=== PATIENT | female | born 1935 | race Caucasian/White ===

== ENCOUNTER 2019-03-04 16:31 | Inpatient (IN) | payer OTHER ==
[~2019-03-04] VITALS: Ht 157.5 cm; Wt 60.8 kg
[~2019-03-04 16:31] MED LIST: ASPI81EC98 PO; ATI.5 PO; ATOR40TA PO; AZEL137S8 NS; BUDE1AER2 IH; CAR30 PO; ISOS1POW; LEVO500T6 PO; LISI-420 PO; LISI10TA11 PO; METR250T2 PO; MOME0.051 NS; NITR0.4T2 SL; [UNRECOGNIZED DRUG - CODE] IH
--- NOTE | 2019-03-04 16:31 | NUR ---
Patient BIBA ALS, transferred to bed 6. RN evaluating patient at bedside.
[2019-03-04 16:37] VITALS: BP 140/55
[2019-03-04] MEDS ORDERED: BUDE1AER2 IH (16:49)
[2019-03-04] MEDS ORDERED: NITR0.4T2 SL (16:49)
[2019-03-04] MEDS ORDERED: MONT10TA35 PO (16:49)
--- NOTE | 2019-03-04 17:02 | NUR ---
Dr. Boswell evaluating patient at bedside.
--- NOTE | 2019-03-04 17:05 | NUR ---
PATIENT PRESENTS TO ED WITH BILATERAL LOWER QUADRANTS PAIN DENIES, SKIN IS PINK/WARM/DRY; AAOX4 WITH EVEN AND STEADY GAIT; LUNGS CLEAR BL; HR EVEN AND REGULAR; PT DENIES ANY FEVER, CP, SOB, OR COUGH AT THIS TIME; PATIENT STATES PAIN OF 6/10 AT THIS TIME; VSS; PATIENT POSITIONED FOR COMFORT; HOB ELEVATED; BEDRAILS UP X2; BED DOWN. ER MD MADE AWARE OF PT STATUS.
[2019-03-04] MEDS ORDERED: NACL 0.9% 1,000 ML IV ONE (17:13)
[2019-03-04] MEDS ORDERED: NACL 0.9% 1,000 ML IV SCH ×2 (17:13→19:26)
[2019-03-04] MEDS ORDERED: ONDANSETRON 4 MG/2 ML VIAL IVP ONE (17:15)
[2019-03-04] MEDS ORDERED: FAMOTIDINE 20 MG/2 ML VIAL IVP ONE (17:15)
[2019-03-04] MEDS ORDERED: KETOROLAC 15 MG/ML VIAL IVP ONE (17:15)
[2019-03-04] MEDS ORDERED: metroNIDAZOLE 500 MG/NS PREMIX 100 ML IV ONE (17:15)
[2019-03-04 18:02] LABS: BASOPHILS % (AUTO) 0.2 % (0.0-2.0); EOSINOPHILS # (AUTO) 0.2 K/uL (0-0.4); EOSINOPHILS % (AUTO) 1.8 % (0.0-4.0); HEMOGLOBIN 13.9 g/dL (12.0-16.0); LYMPHOCYTES # (AUTO) 0.3 K/uL (2.5-16.5); LYMPHOCYTES % (AUTO) 2.6 % (20.5-51.1); MEAN CORPUSCULAR HEMOGLOBIN 31 pg (27-31); MEAN CORPUSCULAR HGB CONC 33 g/dL (33-37); MEAN CORPUSCULAR VOLUME 93.2 fL (80-94); MONOCYTES # (AUTO) 0.3 K/uL (0.8-1.0); MONOCYTES % (AUTO) 3.3 % (1.7-9.3); NEUTROPHILS % (AUTO) 92.1 % (42.2-75.2); PLATELET COUNT (AUTO) 210 K/uL (140-450); RED BLOOD CELL COUNT(AUTO) 4.51 MIL/uL (4.20-5.40); RED CELL DISTRIBUTION WIDTH 13.8 % (11.6-13.7); WHITE BLOOD COUNT (AUTO) 9.8 K/uL (4.8-10.8)
[2019-03-04 18:17] LABS: CARBON DIOXIDE 24.6 mmol/L (21-32); CHLORIDE 108 mmol/L (98-107); CREATININE 0.7 mg/dL (0.6-1.3); GLUCOSE 102 mg/dL (74-106); POTASSIUM 3.6 mmol/L (3.5-5.1); SODIUM SERUM 145 mmol/L (136-145); UREA NITROGEN, BLOOD 19 mg/dL (7-18)
--- NOTE | 2019-03-04 18:18 | NUR ---
Patient returned from CT scan. RN re-evaluating patient at bedside.
[2019-03-04 18:23] LABS: ALBUMIN 3.2 g/dL (3.4-5.0); AMYLASE 60 U/L (25-115); ASPARTATE AMINOTRANSFERASE 25 U/L (15-37); LIPASE 108 U/L (73-393)
--- NOTE | 2019-03-04 18:30 | NUR ---
PT KWESI KNIGHT NUMBER [phone]
--- NOTE | 2019-03-04 18:39 | NUR ---
paint laboratory technician at bedside.
[2019-03-04 19:07] LABS: PROTHROMBIN TIME 10.6 secs (10.8-13.4)
--- NOTE | 2019-03-04 19:15 | NUR ---
SBAR REPORT GIVEN TO PARAM MEJIA AT BEDSIDE.
[2019-03-04] MEDS ORDERED: ACETAMINOPHEN 325 MG TAB PO PRN (19:30)
[2019-03-04] MEDS ORDERED: ONDANSETRON 4 MG/2 ML VIAL IM/IVP PRN (19:30)
--- NOTE | 2019-03-04 19:35 | NUR ---
RESIDENTS BED SIDE
[2019-03-04] MEDS ORDERED: KETOROLAC 15 MG/ML VIAL IVP SCH (20:10)
[2019-03-04 20:27] LABS: APPEARANCE,URINE CLEAR (CLEAR); BILIRUBIN,URINE NEGATIVE (NEGATIVE); BLOOD, URINE 1+ (NEGATIVE); COLOR,URINE YELLOW (YELLOW); LEUKOCYTE ESTERASE ,URINE NEGATIVE (NEGATIVE); NITRITE, URINE NEGATIVE (NEGATIVE); UGLUCOSE NEGATIVE (NEGATIVE)
[2019-03-04 20:30] VITALS: BP 124/75
--- NOTE | 2019-03-04 20:30 | NUR ---
RECIEVED PT FROM ER / DIONTE , AAOX4 , NID , AMBULATES TO BED , AMBULATE WITH THE USE OF CANE ACCORDING TO HER HE HAS FOOT DROP . C/O OF ABDL. PAIN 05/28 SHE RATED THE PAIN - JUST MEDICATED WITH TORADOL AT ER. NPO EXCEPT MEDS INSTRUCT TO PT . MRSA SPECIMEN COLLECTED AND SENT TO LAB . ADMISSION ASSESSMENT DONE , FALL RISK - PUT ON SAFETY / FALL PRECAUTION PROTOCOL - BED ALARM ON , INSTRUCT THE USE OF CALL LIGHT - CALL LIGHT WITHIN REACH. PLAN OF CARE DISCUSSED AND VERBALIZE UNDERSTANDING - FOR STOOL COLLECTION FOR C DIFF. WILL CONT TO MONITOR . WITH HX OF MRSA NARES. Addendum: 03/05/19 at 313 by Azalea Cabral RN IV SITE INTACT AND PATENT .YASIR Addendum: 03/05/19 at 316 by Azalea Cabral RN THE NURSE'S ENTRY ( HX OF STROKE ) ON ADMISSION HEALTH ASSESSMENT IS WRONG ENTRY. PT STATED IN THIER FAMILY THERE FAMILIAL MEDICAL HX OF STROKE BUT SHE HAS NO HX OF IT. TO SUM UP PT. HAD NO HX OF STROKE- NICOLR
--- NOTE | 2019-03-04 20:30 | NUR ---
PT ADMITTED TO [facility] RM 115. TRANSFERRED PT VIA [facility]. REPORT GIVEN TO GASPER MEJIA. PT CARE TRANSFERRED TO RECEIVING RN.
[2019-03-04 21:15] LABS: RBC,URINE 0-5 /HPF (0-5); WBC,URINE NONE SEEN /HPF (0-5)
--- NOTE | 2019-03-04 22:00 | NUR ---
MADE ROUNDS , NO DISTRES NOTED AT THIS TIME , NO N/V AT THIS TIME , DENIES PAIN AT THIS TIME, WILL CONT. TO MONITOR.
[2019-03-04 22:15] LABS: CHOL/HDL RATIO 2.4 (1-4.5); FREE T4 (FREE THYROXINE) 1.28 ng/dL (0.76-1.46); MAGNESIUM 1.6 mg/dL (1.8-2.4); PHOSPHORUS 2.3 mg/dL (2.5-4.9); THYROID STIMULATING HORMONE 2.12 uIU/mL (0.34-3.74)
[2019-03-04] MEDS: DILTIAZEM 30 MG TAB PO SCH (22:26)
[2019-03-04] MEDS: LISINOPRIL 10 MG TAB PO SCH (22:26)
[2019-03-04] MEDS: LORazepam 0.5 MG TAB PO SCH (22:27)
[2019-03-04] MEDS ORDERED: MAG SULF 2000 MG/WATER PREMIX 50 ML IV SCH (23:15)
[2019-03-05] VITALS: BP 110/60
--- NOTE | 2019-03-05 | NUR ---
MADE ROUNDS , NO ANY SIGNS OF DISTRESS NOTED AT THIS TIME., STILL FOR STOOL COLLECTION .CALL LIGHT WITHIN REACH.
[2019-03-05 04:00] VITALS: BP 110/60
[2019-03-05] MEDS ORDERED: KETOROLAC 15 MG/ML VIAL IVP PRN (07:00)
--- NOTE | 2019-03-05 07:32 | NUR ---
RECEIVED ENDORSEMENT FROM CHARGE NURSE. PATIENT IS AAOX4, VIETNAMESE SPEAKING. RESPIRATIONS ARE EVEN AND UNLABORED ON ROOM AIR. PATIENT DENIES ANY PAIN AT THIS TIME. LEFT AC 20G IV INTACT, PATENT, AND INFUSING IVF. PLAN OF CARE WAS REVIEWED WITH PATIENT, PATIENT VERBALIZED UNDERSTANDING. SAFETY MEASURES IN PLACE, CALL LIGHT WITHIN REACH.
[2019-03-05 07:35] LABS: BASOPHILS % (AUTO) 0.3 % (0.0-2.0); EOSINOPHILS # (AUTO) 0.1 K/uL (0-0.4); EOSINOPHILS % (AUTO) 2.9 % (0.0-4.0); HEMATOCRIT 37.7 % (36-48); HEMOGLOBIN 12.7 g/dL (12.0-16.0); LYMPHOCYTES # (AUTO) 0.5 K/uL (2.5-16.5); LYMPHOCYTES % (AUTO) 9.1 % (20.5-51.1); MEAN CORPUSCULAR HEMOGLOBIN 31 pg (27-31); MEAN CORPUSCULAR HGB CONC 34 g/dL (33-37); MEAN CORPUSCULAR VOLUME 92.6 fL (80-94); MONOCYTES # (AUTO) 0.3 K/uL (0.8-1.0); MONOCYTES % (AUTO) 6.7 % (1.7-9.3); NEUTROPHILS # (AUTO) 4.1 K/uL (1.8-7.7); PLATELET COUNT (AUTO) 187 K/uL (140-450); RED BLOOD CELL COUNT(AUTO) 4.07 MIL/uL (4.20-5.40); RED CELL DISTRIBUTION WIDTH 13.9 % (11.6-13.7); WHITE BLOOD COUNT (AUTO) 5.1 K/uL (4.8-10.8)
[2019-03-05 08:00] VITALS: BP 136/60
[2019-03-05 08:04] LABS: ANION GAP 13.4 (8-16); CARBON DIOXIDE 23.3 mmol/L (21-32); CHLORIDE 112 mmol/L (98-107); CREATININE 0.7 mg/dL (0.6-1.3); GLUCOSE 84 mg/dL (74-106); POTASSIUM 3.7 mmol/L (3.5-5.1); SODIUM SERUM 145 mmol/L (136-145); UREA NITROGEN, BLOOD 17 mg/dL (7-18)
[2019-03-05] MEDS ORDERED: DEXT 5% /NACL 0.9% 1,000 ML IV SCH (08:20)
--- NOTE | 2019-03-05 08:20 | NUR ---
ADMINISTERED SCHEDULED FLUIDS. PATIENT DENIES ANY PAIN, NO OTHER NEEDS AT THIS TIME.
--- NOTE | 2019-03-05 08:33 | NUR ---
PATIENT HAS BEEN SCREENED AND CATEGORIZED MODERATE NUTRITION RISK. PATIENT WILL BE SEEN WITHIN 3-5 DAYS OF ADMISSION. 03/07/19 03/09/[address] Addendum: 03/05/19 at [address] DISREGARD NOTE ABOVE. FNS CONSULT HAS BEEN RECEIVED FOR MALNUTRITION AND CARDIAC DIET EDUCATION. PATIENT HAS BEEN RE-SCREENED HIGH RISK AND WILL BE SEEN WITHIN 1-2 DAYS OF RECEIVING THE FNS CONSULT. 03/05/19- 03/06/[address]
[2019-03-05] MEDS ORDERED: SODIUM PHOS / POTASSIUM PHOS 1 PKT PDR PO SCH (09:00)
[2019-03-05] MEDS: LISINOPRIL 20 MG TAB PO SCH (09:41)
[2019-03-05] MEDS: MONTELUKAST SODIUM 10 MG TAB PO SCH (09:42)
[2019-03-05] MEDS: ATORVASTATIN 20 MG TAB PO SCH (09:42)
[2019-03-05] MEDS: DILTIAZEM 30 MG TAB PO SCH ×2 (09:43→21:00)
[2019-03-05] MEDS: ASPIRIN 81 MG TAB.CHEW PO SCH (09:43)
--- NOTE | 2019-03-05 09:43 | NUR ---
ADMINISTERED SCHEDULED MEDICATIONS. PATIENT TOLERATED WELL. NO OTHER NEEDS AT THIS TIME. WILL CONTINUE TO MONITOR.
--- NOTE | 2019-03-05 11:59 | NUR ---
REMOVED IV, PATIENT C/O OF PAIN AND LEAKAGE. INSERTED NEW ONE USING ASEPTIC TECHNIQUE, LEFT FA22G. PATIENT DENIES ANY PAIN. NO OTHER NEEDS AT THIS TIME.
[2019-03-05 12:00] VITALS: BP 116/50
--- NOTE | 2019-03-05 13:12 | NUR ---
*S.T. Bedside swallow eval* See report. Pt presents w/ adequate oropharyngeal swallow function for the current diet she is on, which is clear liquids. No overt s/s aspiration observed w/ P.O. trial water via cup sip. Pt refused all other P.O. trials due to feeling bloated, as she did yesterday, which led to vomiting, diarrhea and her admission into hospital. Pt was tearful and expressed her concerns to this clinician and RN Radha, who was came to room at clinician's request. Pt's bedside RN Ayaka was with another patient at the time. Oropharyngeal dysphagia is not suspected. Pt denied any history of s/s aspiration. Recommend: 1) Continue P.O. diet as tolerated. Defer to medicine team on diet textures and dietary restrictions. 2) DC to nsg care at this time. Pt does not demonstrate a clinical dysphagia and therefore no further tx indicated. Endorsed to nsg. Time 6012-8902
--- NOTE | 2019-03-05 13:20 | NUR ---
ADDRESSED PATIENTS CONCERNS. INSTRUCTED PATIENT TO USE CALL LIGHT IF SHE FELT NAUSEOUS. NO OTHER NEEDS AT THIS TIME, WILL CONTINUE TO MONITOR.
--- NOTE | 2019-03-05 13:56 | NUR ---
03/05/19 RD INITIAL ASSESSMENT COMPLETED PLEASE REFER TO NUTRITION ASSESSMENT UNDER CARE ACTIVITY FOR ESTIMATED NUTRITIONAL NEEDS. 1. CONTINUE CLEAR LIQUID DIET TOLERATED 2. RECOMMEND ENSURE CLEAR TID TOLERATED 3. RD PROVIDED NUTRITION EDUCATION ON DIVERTICULITIS. PT ACCEPTED 4. WHEN MEDICALLY APPROPRIATE ADVANCE PT TO LOW FIBER DIET 5. RD TO FOLLOW-UP 2-3 DAYS, HIGH RISK AKIL BURTON, RD
--- NOTE | 2019-03-05 15:43 | NUR ---
PATIENT RESTING IN BED. DENIES ANY PAIN. NO OTHER NEEDS AT THIS TIME, WILL CONTINUE TO MONITOR.
[2019-03-05 16:00] VITALS: BP 120/59
[2019-03-05] MEDS ORDERED: DIPHENOXYLATE /ATROPINE 2.5 MG TAB PO PRN (16:55)
[2019-03-05] MEDS ORDERED: POTASSIUM CHLORIDE 20% 40 MEQ/15 ML UDC PO SCH (17:30)
--- NOTE | 2019-03-05 17:52 | NUR ---
ADMINISTERED SCHEDULED MEDICATION. PATIENT TOLERATED WELL. PATIENT DENIES ANY PAIN. NO OTHER NEEDS AT THIS TIME.
[2019-03-05] MEDS: NACL 0.9% 1,000 ML IV SCH (18:38)
--- NOTE | 2019-03-05 19:12 | NUR ---
RECIEVED PT AAOX4 , NID , IV SITE INTACT AND PATENT , WITH EPISODE OF LOOSE BM - WILL CONT. TO MONITOR , ON FULL LIQ. DIET - REINSTRUCTED , ON SAFETY / PRECAUTION PROTOCOL - BED ALARM ON , CALL LIGHT WITHIN REACH , PALAN OF CARE DISCUSSED AND VERBALIZE UNDERSTANDING , WILL CONT. TO MONITOR.
--- NOTE | 2019-03-05 19:12 | NUR ---
ENDORSED TO HOT ROLLER NURSE FOR CONTINUITY OF CARE. PATIENT IS STABLE AT THIS TIME.
[2019-03-05 20:00] VITALS: BP 140/72
[2019-03-05] MEDS: LISINOPRIL 10 MG TAB PO SCH (21:00)
[2019-03-05] MEDS: LORazepam 0.5 MG TAB PO SCH (21:00)
--- NOTE | 2019-03-05 21:10 | NUR ---
POSITIVE C DIFF - INFORMED YNES -MADE NEW ORDER AND CARRIED OUT .
[2019-03-05] MEDS ORDERED: WATER STERILE 20 ML MC ONE (23:52)
[2019-03-05] MEDS: VANCOMYCIN 500 MG VIAL PO SCH (23:58)
[2019-03-06] VITALS: BP 130/70
--- NOTE | 2019-03-06 | NUR ---
CARLOTTA CUMMINGS , NO SIGNS OF DISTRESS NOTED AT THIS TIME - CALL LIGHT WITHIN REACH.
[2019-03-06 04:00] VITALS: BP 133/72
[2019-03-06] MEDS: VANCOMYCIN 500 MG VIAL PO SCH ×4 (06:00→23:47)
[2019-03-06] MEDS: NACL 0.9% 1,000 ML IV SCH (07:13)
--- NOTE | 2019-03-06 07:20 | NUR ---
Received bedside report from pm nurse Azaela. Pt resting in bed, awake, watching TV, no signs of distress, no c/o discomfort. Left forearm IV intact with ongoing NS@ 80ml/h. Pt's personal cane & call light within reach. Encouraged pt to call for assistance with transfers/ambulation for safety, verbalized understanding.
--- NOTE | 2019-03-06 07:30 | NUR ---
ENDORSED TO AM SHIFT WITH STABLE CONDITION.
[2019-03-06 07:40] LABS: BASOPHILS % (AUTO) 0.5 % (0.0-2.0); EOSINOPHILS # (AUTO) 0.3 K/uL (0-0.4); EOSINOPHILS % (AUTO) 7.4 % (0.0-4.0); HEMATOCRIT 39.1 % (36-48); HEMOGLOBIN 12.9 g/dL (12.0-16.0); LYMPHOCYTES # (AUTO) 1.3 K/uL (2.5-16.5); LYMPHOCYTES % (AUTO) 29.3 % (20.5-51.1); MEAN CORPUSCULAR HEMOGLOBIN 31 pg (27-31); MEAN CORPUSCULAR HGB CONC 33 g/dL (33-37); MEAN CORPUSCULAR VOLUME 94.1 fL (80-94); MONOCYTES # (AUTO) 0.4 K/uL (0.8-1.0); MONOCYTES % (AUTO) 9.8 % (1.7-9.3); NEUTROPHILS # (AUTO) 2.3 K/uL (1.8-7.7); PLATELET COUNT (AUTO) 174 K/uL (140-450); RED BLOOD CELL COUNT(AUTO) 4.16 MIL/uL (4.20-5.40); RED CELL DISTRIBUTION WIDTH 14.2 % (11.6-13.7); WHITE BLOOD COUNT (AUTO) 4.4 K/uL (4.8-10.8)
[2019-03-06 07:58] VITALS: BP 150/69
[2019-03-06 08:16] LABS: POTASSIUM 3.9 mmol/L (3.5-5.1); SODIUM SERUM 141 mmol/L (136-145)
[2019-03-06 08:17] LABS: ANION GAP 12.6 (8-16); CARBON DIOXIDE 22.3 mmol/L (21-32); CHLORIDE 110 mmol/L (98-107); CREATININE 0.8 mg/dL (0.6-1.3); GLUCOSE 79 mg/dL (74-106); UREA NITROGEN, BLOOD 9 mg/dL (7-18)
[2019-03-06] MEDS ORDERED: CHLORHEXADINE GLUC 2% CLOTH TP SCH (09:00)
[2019-03-06] MEDS ORDERED: MUPIROCIN CA NASAL 2% 1GM TUBE NS SCH (09:00)
[2019-03-06] MEDS: ASPIRIN 81 MG TAB.CHEW PO SCH (09:04)
[2019-03-06] MEDS: MONTELUKAST SODIUM 10 MG TAB PO SCH (09:04)
[2019-03-06] MEDS: DILTIAZEM 30 MG TAB PO SCH ×2 (09:04→21:05)
[2019-03-06] MEDS: LISINOPRIL 20 MG TAB PO SCH (09:04)
[2019-03-06] MEDS: ATORVASTATIN 20 MG TAB PO SCH (09:05)
[2019-03-06 10:24] LABS: MAGNESIUM 1.8 mg/dL (1.8-2.4); PHOSPHORUS 2.5 mg/dL (2.5-4.9)
--- NOTE | 2019-03-06 10:30 | NUR ---
Pt resting in bed, watching TV, no signs of distress, no c/o pain. Per pt, no BM since last night, no GI discomfort. Left forearm IV intact with ongoing NS @ 80ml/hr. Call light within reach.
[2019-03-06 12:00] VITALS: BP 138/70
[2019-03-06 16:00] VITALS: BP 124/63
--- NOTE | 2019-03-06 18:29 | NUR ---
Pt sitting up in bed, eating dinner, no c/o discomfort, no signs of distress. Pt denies any GI discomfort. Left forearm IV intact & asymptomatic. Call light within reach.
--- NOTE | 2019-03-06 19:00 | NUR ---
RECEIVED BEDSIDE REPORT FROM DAY SHIFT NURSE. PATIENT IS AWAKE, ALERT, AND COOPERATIVE. RESPIRATION EVEN UNLABORED ON ROOM AIR. NO DISTRESS NOTED. SKIN IS WARM AND DRY. IV PATENT AND INTACT. DENIES PAIN. FAMILY AT BEDSIDE. PLAN OF CARE WAS DISCUSSED. ALL SAFETY MEASURES IN PLACE. CONTACT PRECAUTION MAINTAINED. BED IS AT LOW POSITION. CALL LIGHT WITHIN REACH AND VERBALIZES ITS USE. WILL CONTINUE TO MONITOR.
--- NOTE | 2019-03-06 19:30 | NUR ---
PT ENDORSED TO PC TECHNICIAN NURSE IN STABLE CONDITION.
[2019-03-06 20:00] VITALS: BP 143/66
--- NOTE | 2019-03-06 20:00 | NUR ---
INITIAL ASSESSMENT DONE. VITALS WERE TAKEN. PATIENT IN STABLE CONDITION. WILL CONTINUE TO MONITOR.
--- NOTE | 2019-03-06 21:00 | NUR ---
ALL SCHEDULED MEDS WERE GIVEN PER ORDER. NO ASE NOTED. WILL CONTINUE TO MONITOR.
[2019-03-06] MEDS: LISINOPRIL 10 MG TAB PO SCH (21:05)
[2019-03-06] MEDS: LORazepam 0.5 MG TAB PO SCH (21:05)
--- NOTE | 2019-03-06 22:30 | NUR ---
PATIENT IN BED WATCHING TV RESPIRATION EVEN UNLABORED ON ROOM AIR. NO DISTRESS NOTED. WILL CONTINUE TO MONITOR.
[2019-03-07] VITALS: BP 145/70
--- NOTE | 2019-03-07 | NUR ---
VITALS WERE TAKEN. PATIENT IN STABLE CONDITION. NO DISTRESS NOTED. WILL CONTINUE TO MONITOR.
--- NOTE | 2019-03-07 02:00 | NUR ---
CHECKED PATIENT. PATIENT SLEEPING RESPIRATION EVEN UNLABOR ON ROOM AIR. NO DISTRESS NOTED. WILL CONTINUE TO MONITOR.
[2019-03-07 04:00] VITALS: BP 142/75
--- NOTE | 2019-03-07 04:00 | NUR ---
VITALS WERE TAKEN. PATIENT IN STABLE CONDITION. NO DISTRESS NOTED. WILL CONTINUE TO MONITOR.
[2019-03-07] MEDS: VANCOMYCIN 500 MG VIAL PO SCH (06:01)
--- NOTE | 2019-03-07 07:28 | NUR ---
ENDORSED PATIENT TO DAY SHIFT NURSE. PATIENT IN STABLE CONDITION
--- NOTE | 2019-03-07 07:30 | NUR ---
Received report from shift superintendent nurse. No C/O pain. No signs of distress. Call light in reach.
[2019-03-07 07:44] LABS: BASOPHILS % (AUTO) 0.5 % (0.0-2.0); EOSINOPHILS # (AUTO) 0.4 K/uL (0-0.4); EOSINOPHILS % (AUTO) 8.5 % (0.0-4.0); HEMATOCRIT 39.1 % (36-48); LYMPHOCYTES # (AUTO) 1.4 K/uL (2.5-16.5); LYMPHOCYTES % (AUTO) 30.3 % (20.5-51.1); MEAN CORPUSCULAR HEMOGLOBIN 31 pg (27-31); MEAN CORPUSCULAR HGB CONC 33 g/dL (33-37); MEAN CORPUSCULAR VOLUME 92.6 fL (80-94); MONOCYTES # (AUTO) 0.5 K/uL (0.8-1.0); MONOCYTES % (AUTO) 10.3 % (1.7-9.3); NEUTROPHILS # (AUTO) 2.3 K/uL (1.8-7.7); NEUTROPHILS % (AUTO) 50.4 % (42.2-75.2); PLATELET COUNT (AUTO) 166 K/uL (140-450); RED BLOOD CELL COUNT(AUTO) 4.22 MIL/uL (4.20-5.40); RED CELL DISTRIBUTION WIDTH 13.8 % (11.6-13.7); WHITE BLOOD COUNT (AUTO) 4.5 K/uL (4.8-10.8)
[2019-03-07 07:47] LABS: MAGNESIUM 1.7 mg/dL (1.8-2.4)
[2019-03-07 07:48] LABS: ANION GAP 13.1 (8-16); CARBON DIOXIDE 24.7 mmol/L (21-32); CHLORIDE 110 mmol/L (98-107); CREATININE 0.7 mg/dL (0.6-1.3); GLUCOSE 81 mg/dL (74-106); POTASSIUM 3.8 mmol/L (3.5-5.1); SODIUM SERUM 144 mmol/L (136-145); UREA NITROGEN, BLOOD 8 mg/dL (7-18)
[2019-03-07 07:59] LABS: PHOSPHORUS 3.2 mg/dL (2.5-4.9)
[2019-03-07 08:00] VITALS: BP 150/66
[2019-03-07] MEDS ORDERED: VANC125C10 PO (08:01)
[2019-03-07] MEDS ORDERED: LACT1.4C PO (08:01)
[2019-03-07] MEDS ORDERED: MAGNESIUM OXIDE 400 MG TAB PO SCH (08:30)
[2019-03-07] MEDS: ASPIRIN 81 MG TAB.CHEW PO SCH (08:33)
[2019-03-07] MEDS: LISINOPRIL 20 MG TAB PO SCH (08:33)
[2019-03-07] MEDS: ATORVASTATIN 20 MG TAB PO SCH (08:33)
[2019-03-07] MEDS: MONTELUKAST SODIUM 10 MG TAB PO SCH (08:34)
[2019-03-07] MEDS: DILTIAZEM 30 MG TAB PO SCH (08:35)
--- NOTE | 2019-03-07 10:30 | NUR ---
Pt resting in bed> no C/O pain. Call light in reach
--- NOTE | 2019-03-07 11:55 | NUR ---
Pt discharge to home. Pt was taken by wheel chair to her car. Pt was accompanied by son and grandson. Pt was stable at discharge. no C/O pain. No distress noted. Discharge instruction given to patient. All belongings with patient. Pt to follow up PCP within 5 days. IV line removed. Catheter intact.
[2019-03-08] MEDS ORDERED: PHARMACY COMMENTS MC SCH (09:00)
== END 2019-03-07 11:55 | disposition home or self-care (01) | DRG 371 ==
LOC: MED 16:31 → MTU 19:26
PROVIDERS: ADMIT General Practice; ATTEND General Practice
DX: A04.72 Enterocolitis due to Clostridium difficile, not specified as recurrent (principal); E43 Unspecified severe protein-calorie malnutrition; A08.4 Viral intestinal infection, unspecified; E83.42 Hypomagnesemia; Z68.24 Body mass index [BMI] 24.0-24.9, adult; E83.39 Other disorders of phosphorus metabolism; I10 Essential (primary) hypertension; I25.10 Atherosclerotic heart disease of native coronary artery without angina pectoris; I48.91 Unspecified atrial fibrillation; J45.909 Unspecified asthma, uncomplicated; E86.0 Dehydration; E78.5 Hyperlipidemia, unspecified; R31.9 Hematuria, unspecified; K57.90 Diverticulosis of intestine, part unspecified, without perforation or abscess without bleeding; Z88.5 Allergy status to narcotic agent; Z79.82 Long term (current) use of aspirin; Z79.899 Other long term (current) drug therapy; Z82.61 Family history of arthritis; Z83.3 Family history of diabetes mellitus; Z82.3 Family history of stroke; Z82.49 Family history of ischemic heart disease and other diseases of the circulatory system
CPT/HCPCS: 36415; 71045; 80048; 80053; 81001; 82150; 82272; 82550; 83036; 83605; 83690; 83735; 83880; 84100; 84439; 84443; 84484; 85025; 85610; 85730; 87015; 87045; 87070; 87081; 89055; 92610; 93005; 96365; 96375; 97116; 97530; 99285; J1644; J1885; J2405; J3370; J3475; J3490; J7030; J7042

== ENCOUNTER 2021-07-14 13:47 | Emergency (ER) | payer OTHER ==
[~2021-07-14] VITALS: Ht 162.6 cm; Wt 77.1 kg
[~2021-07-14 13:47] MED LIST changes: -ATI.5 PO; -BUDE1AER2 IH; -CAR30 PO; +DILT30TA18 PO; -ISOS1POW; +LACT1.4C PO; -LEVO500T6 PO; -LISI-420 PO; +LISI-486 PO; +LISI-487 PO; -LISI10TA11 PO; -METR250T2 PO; -MOME0.051 NS; +MONT10TA35 PO; -NITR0.4T2 SL; +VANC125C10 PO; -[UNRECOGNIZED DRUG - CODE] IH
--- NOTE | 2021-07-14 14:00 | NUR ---
PATIENT AMBULATED TO BED 11
[2021-07-14 14:01] VITALS: BP 160/74
--- NOTE | 2021-07-14 14:16 | NUR ---
85/F C/O OF RIGHT FOOT CALLUS, 7/10 PAIN. PATIENT STATES THAT IT HURTS TO WALK ON FOOT AND IT FEELS LIKE ITS INFECTED. PMHX: HYPERTENSION, A-FIB, CHOLESTEROL, ADULT ASTHMA
--- NOTE | 2021-07-14 14:45 | NUR ---
Ultrasound at bedside.
--- NOTE | 2021-07-14 15:00 | NUR ---
PATIENT STABLE IN BED, ALL NEEDS MET
[2021-07-14] MEDS ORDERED: CEPH-588 PO (15:40)
--- NOTE | 2021-07-14 15:45 | NUR ---
Patient discharged with v/s stable. Written and verbal after care instructions given on corn and calluses and explained. Patient alert, oriented and verbalized understanding of instructions. Ambulatory with steady gait. All questions addressed prior to discharge. ID band removed. Patient advised to follow up with PMD. Rx of keflex given. Opportunity to ask questions provided and answered.
[2021-07-14 15:54] VITALS: BP 128/78
--- NOTE | 2021-07-14 16:01 | NUR ---
The patient's care was reviewed and supervised by Nelida Galaviz RN.
== END 2021-07-14 15:45 | disposition home or self-care (01) ==
LOC: MED 13:47
DX: M25.775 Osteophyte, left foot (principal); J45.909 Unspecified asthma, uncomplicated; I10 Essential (primary) hypertension; Z88.5 Allergy status to narcotic agent; Z79.899 Other long term (current) drug therapy; Z79.82 Long term (current) use of aspirin
CPT/HCPCS: 93971; 99284; Q0092

== ENCOUNTER 2021-07-28 17:02 | Emergency (ER) | payer OTHER ==
[~2021-07-28] VITALS: Ht 160 cm; Wt 74.8 kg
[~2021-07-28 17:02] MED LIST changes: +CEPH-588 PO
[2021-07-28 17:11] VITALS: BP 152/72
--- NOTE | 2021-07-28 17:19 | NUR ---
BIBA to bed 04.
[2021-07-28] MEDS ORDERED: IBUPROFEN 400 MG TAB PO ONE (17:20)
[2021-07-28] MEDS ORDERED: LIDOCAINE 5% 1 EA PATCH TP ONE (17:20)
--- NOTE | 2021-07-28 17:25 | NUR ---
85 y/o F BIBA from home c/o L upper back pain since yesterday, reports today worsening pain to L shoulder and L side of neck. Patient A&Ox4, ambulatory with cane, states pain yesterday was alleviated with repositioning and reports pain radiating pain. Pt noted with infection to L foot per EMS. Patient reports 8/10, dull/constant, radiating to shoulder, L neck, and chest. EMS 12 lead A-fib @ HR 88. Pt denies nausea, vomiting, SOB, fall, trauma, dizziness, headache. Pt placed into gown and quality assurance monitor. Bed locked in lowest position, side rails x 1. 20G established to Left FA by EMS. PMH: a-fib, HTN, HLD, asthma Meds: simacor, keflex, ASA, montelukast, lisinopril A: morphine
[2021-07-28] MEDS ORDERED: LIDO5TDM45 TP (18:25)
[2021-07-28 18:50] VITALS: BP 152/72
--- NOTE | 2021-07-28 18:50 | NUR ---
Patient discharged with v/s stable. Written and verbal after care instructions given and explained. Patient alert, oriented and verbalized understanding of instructions. Ambulatory with steady gait. All questions addressed prior to discharge. ID band removed. IV DISCONTINUED. Patient advised to follow up with PMD. Rx of LIDOCAINE given. Patient educated on indication of medication including possible reaction and side effects. Opportunity to ask questions provided and answered.
== END 2021-07-28 18:50 | disposition home or self-care (01) ==
LOC: MED 17:02
DX: M25.512 Pain in left shoulder (principal); I10 Essential (primary) hypertension; J45.909 Unspecified asthma, uncomplicated; Z88.5 Allergy status to narcotic agent; Z79.899 Other long term (current) drug therapy; Z79.82 Long term (current) use of aspirin; Z85.9 Personal history of malignant neoplasm, unspecified
CPT/HCPCS: 71045; 73030; 99284; Q0092

== ENCOUNTER 2021-11-11 10:39 | Emergency (ER) | payer OTHER ==
[~2021-11-11] VITALS: Ht 157.5 cm; Wt 75.9 kg
[~2021-11-11 10:39] MED LIST changes: +LIDO5TDM45 TP
[2021-11-11 10:48] VITALS: BP 126/89
--- NOTE | 2021-11-11 10:58 | NUR ---
PT W/C ASSISTED TO BED 12.
[2021-11-11] MEDS ORDERED: NACL 0.9% 1,000 ML IV ONE (11:10)
--- NOTE | 2021-11-11 11:15 | NUR ---
86 y/o female, c/o throat pain, cough, chest/nasal congestion, saucedo for 1 month. pt reports new onset of diarrhea this morning. pt also states she tested negative for covid this morning with at home test. skin is pink/warm/dry. a&o x4 with even and steady gait. lungs clear bl, heart rate even and regular. pt denies anyone sick in the household with the same symptoms. pt states pain is 8/10 at this time. patient positioned for comfort. hob elevated. bed down. ermd made aware of pt. pmh: atrial fibrillation, htn, asthma allergy: morphine med: denies
--- NOTE | 2021-11-11 11:18 | NUR ---
influenza and covid stephan done at this time, given to lab
--- NOTE | 2021-11-11 11:37 | NUR ---
X-Ray at bedside.
[2021-11-11 12:02] LABS: BASOPHILS % (AUTO) 0.3 % (0.0-2.0); EOSINOPHILS # (AUTO) 1.9 K/uL (0-0.4); EOSINOPHILS % (AUTO) 22.4 % (0.0-4.0); HEMATOCRIT 40.2 % (36-48); HEMOGLOBIN 13.7 g/dL (12.0-16.0); LYMPHOCYTES # (AUTO) 1.3 K/uL (2.5-16.5); LYMPHOCYTES % (AUTO) 14.9 % (20.5-51.1); MEAN CORPUSCULAR HEMOGLOBIN 32 pg (27-31); MEAN CORPUSCULAR HGB CONC 34 g/dL (33-37); MEAN CORPUSCULAR VOLUME 92.9 fL (80-94); MONOCYTES # (AUTO) 0.8 K/uL (0.8-1.0); MONOCYTES % (AUTO) 9.3 % (1.7-9.3); NEUTROPHILS # (AUTO) 4.5 K/uL (1.8-7.7); NEUTROPHILS % (AUTO) 53.1 % (42.2-75.2); PLATELET COUNT (AUTO) 203 K/uL (140-450); RED BLOOD CELL COUNT(AUTO) 4.33 MIL/uL (4.20-5.40); RED CELL DISTRIBUTION WIDTH 14.6 % (11.6-13.7); WHITE BLOOD COUNT (AUTO) 8.5 K/uL (4.8-10.8)
[2021-11-11 12:20] LABS: ANION GAP 14.7 (8-16); CARBON DIOXIDE 24.3 mmol/L (21-32); CHLORIDE 109 mmol/L (98-107); CREATININE 0.9 mg/dL (0.6-1.3); GLUCOSE 109 mg/dL (74-106); SODIUM SERUM 144 mmol/L (136-145); UREA NITROGEN, BLOOD 12 mg/dL (7-18)
[2021-11-11] MEDS ORDERED: DILT30TA18 PO (14:48)
[2021-11-11 15:05] VITALS: BP 113/57
--- NOTE | 2021-11-11 15:07 | NUR ---
Patient discharged with v/s stable. Written and verbal after care instructions given and explained. Patient alert, oriented and verbalized understanding of instructions. Ambulatory to car. All questions addressed prior to discharge. ID band removed. Patient advised to follow up with PMD. Rx of ditiazem (sent) given. Patient educated on indication of medication including possible reaction and side effects. Opportunity to ask questions provided and answered.
== END 2021-11-11 15:05 | disposition home or self-care (01) ==
LOC: MED 10:39
DX: J01.90 Acute sinusitis, unspecified (principal); Z20.822 Contact with and (suspected) exposure to COVID-19; I48.20 Chronic atrial fibrillation, unspecified; R19.7 Diarrhea, unspecified; J45.909 Unspecified asthma, uncomplicated; I10 Essential (primary) hypertension; Z98.890 Other specified postprocedural states; Z79.2 Long term (current) use of antibiotics; Z79.899 Other long term (current) drug therapy; Z79.82 Long term (current) use of aspirin; Z88.5 Allergy status to narcotic agent
CPT/HCPCS: 36415; 71045; 80048; 81002; 83735; 83880; 84484; 85025; 87426; 87804; 93005; 96360; 96361; 99285; J7030; Q0092

== ENCOUNTER 2022-06-10 17:44 | Inpatient (IN) | payer OTHER ==
[~2022-06-10] VITALS: Ht 157.5 cm; Wt 45.4 kg
[~2022-06-10 17:44] MED LIST changes: +BUDE1AER2 IH; -CEPH-588 PO; +FEXO-8 PO; +ISOS10TA9 PO; -LACT1.4C PO; -LIDO5TDM45 TP; -LISI-486 PO; -VANC125C10 PO
[2022-06-10 17:49] VITALS: BP 143/107
--- NOTE | 2022-06-10 17:59 | NUR ---
WC ASSISTED TO BED 4
[2022-06-10] MEDS ORDERED: ENOXAPARIN 40 MG/0.4 ML SYR SUBQ ONE (18:35)
[2022-06-10 18:53] LABS: BASOPHILS # (AUTO) 0.1 K/uL (0.00-0.22); BASOPHILS % (AUTO) 0.6 % (0.0-2.0); EOSINOPHILS # (AUTO) 0.1 K/uL (0-0.4); EOSINOPHILS % (AUTO) 1.3 % (0.0-4.0); MEAN CORPUSCULAR HEMOGLOBIN 31 pg (27-31); MEAN CORPUSCULAR HGB CONC 33 g/dL (33-37); MEAN CORPUSCULAR VOLUME 91.5 fL (80-94); MONOCYTES # (AUTO) 0.8 K/uL (0.8-1.0); MONOCYTES % (AUTO) 9.9 % (1.7-9.3); NEUTROPHILS # (AUTO) 5.5 K/uL (1.8-7.7); NEUTROPHILS % (AUTO) 64.2 % (42.2-75.2); PLATELET COUNT (AUTO) 194 K/uL (140-450); RED BLOOD CELL COUNT(AUTO) 4.59 MIL/uL (4.20-5.40); RED CELL DISTRIBUTION WIDTH 15.2 % (11.6-13.7); WHITE BLOOD COUNT (AUTO) 8.5 K/uL (4.8-10.8)
--- NOTE | 2022-06-10 19:18 | NUR ---
PT IS AWAKE AND ALERT. RESTING AND ABLE TO ANSWER QUESTIONS. SHE SAID SHE IS USING CANE AND CANT WALK VERY FAR SINCE T CAUSES HER OUT OF BREATH
[2022-06-10 19:26] LABS: ALBUMIN 3.3 g/dL (3.4-5.0); ANION GAP 13.2 (8-16); ASPARTATE AMINOTRANSFERASE 14 U/L (15-37); CARBON DIOXIDE 23.1 mmol/L (21-32); CHLORIDE 108 mmol/L (98-107); CREATININE 1.1 mg/dL (0.6-1.3); GLUCOSE 102 mg/dL (74-106); POTASSIUM 4.3 mmol/L (3.5-5.1); SODIUM SERUM 140 mmol/L (136-145); TOTAL BILIRUBIN 0.9 mg/dL (0.0-1.0); UREA NITROGEN, BLOOD 30 mg/dL (7-18)
[2022-06-10] MEDS ORDERED: ONDANSETRON 4 MG/2 ML VIAL IVP PRN (20:00)
[2022-06-10] MEDS ORDERED: DOCUSATE SODIUM 100 MG GELCAP PO PRN (20:00)
[2022-06-10] MEDS ORDERED: MAG SULF 2000 MG/WATER PREMIX 50 ML IV PRN (20:00)
[2022-06-10] MEDS ORDERED: LORazepam 2 MG/ML VIAL IVP PRN (20:00)
[2022-06-10] MEDS ORDERED: ZOLPIDEM 10 MG TAB PO PRN (20:00)
[2022-06-10] MEDS ORDERED: ACETAMINOPHEN 325 MG TAB PO PRN (20:00)
[2022-06-10] MEDS ORDERED: POTASSIUM CHLORIDE 10 MEQ TABER PO PRN (20:00)
[2022-06-10] MEDS ORDERED: LOVENOX 1MG/KG Q12H SUBQ SCH (21:00)
[2022-06-10] MEDS: ECOTRIN 81 MG TABEC PO SCH (21:20)
[2022-06-10] MEDS: ENOXAPARIN 100 MG/ML SYR SUBQ SCH (21:24)
--- NOTE | 2022-06-10 22:44 | NUR ---
Patient will be admitted to care of [facility] [place] . [place] [facility] Will go to room 119A. Belongings list completed. Report to
--- NOTE | 2022-06-10 23:39 | NUR ---
PT ARRIVED AT [facility] VIA [facility] IN STABLE CONDITION.
[2022-06-11 05:59] LABS: ANION GAP 12.6 (8-16); CARBON DIOXIDE 25.2 mmol/L (21-32); CHLORIDE 110 mmol/L (98-107); GLUCOSE 86 mg/dL (74-106); POTASSIUM 3.8 mmol/L (3.5-5.1); SODIUM SERUM 144 mmol/L (136-145); UREA NITROGEN, BLOOD 23 mg/dL (7-18)
[2022-06-11 06:06] LABS: BASOPHILS # (AUTO) 0.1 K/uL (0.00-0.22); BASOPHILS % (AUTO) 0.9 % (0.0-2.0); EOSINOPHILS # (AUTO) 0.2 K/uL (0-0.4); HEMATOCRIT 39.3 % (36-48); HEMOGLOBIN 13.1 g/dL (12.0-16.0); LYMPHOCYTES # (AUTO) 2.7 K/uL (2.5-16.5); LYMPHOCYTES % (AUTO) 34.3 % (20.5-51.1); MEAN CORPUSCULAR HEMOGLOBIN 31 pg (27-31); MEAN CORPUSCULAR HGB CONC 33 g/dL (33-37); MEAN CORPUSCULAR VOLUME 91.7 fL (80-94); MONOCYTES # (AUTO) 0.7 K/uL (0.8-1.0); MONOCYTES % (AUTO) 8.9 % (1.7-9.3); NEUTROPHILS # (AUTO) 4.2 K/uL (1.8-7.7); NEUTROPHILS % (AUTO) 52.9 % (42.2-75.2); PLATELET COUNT (AUTO) 179 K/uL (140-450); RED BLOOD CELL COUNT(AUTO) 4.28 MIL/uL (4.20-5.40); RED CELL DISTRIBUTION WIDTH 15.2 % (11.6-13.7); WHITE BLOOD COUNT (AUTO) 7.9 K/uL (4.8-10.8)
--- NOTE | 2022-06-11 07:27 | NUR ---
ASSUMED CONTINUITY OF CARE. INITIAL ASSESSMENT DONE. SKIN BRUISE ON BUE NOTED. KEEP COMFORTABLE ON BED. EXPLAINED DIAGNOSIS, PLAN OF CARE, PAIN MANAGEMENT TEACHING, USE OF CALL LIGHT, BED, TV, BATHROOM. VERBALIZED UNDERSTANDING. FALL PRECAUTION APPLIED. CALL LIGHT WITHIN REACH.
[2022-06-11 08:00] VITALS: BP 140/49
[2022-06-11] MEDS: ISOSORBIDE DINITRATE 10 MG TAB PO SCH (09:00)
[2022-06-11] MEDS: DILTIAZEM 30 MG TAB PO SCH ×3 (09:00→17:00)
[2022-06-11] MEDS: lisinopriL 20 MG TAB PO SCH (09:00)
--- NOTE | 2022-06-11 09:00 | NUR ---
PAGED DR. PATEL AND INFORMED THAT CT IS DOWN PER CT DEPARTMENT STAFF. INFORMED CHARGE NURSE EVERT WARE.
--- NOTE | 2022-06-11 09:15 | NUR ---
PAGED DR. PATEL REGARDING HOLDING OF BP MEDS CARDIZEM, LISINOPRIL, AND ISORDIL SCHED AT 0900 DUE TO LOW HEART RATE OF 50. INFORMED CHARGE NURSE -EVERT WARE.
[2022-06-11] MEDS: ATORVASTATIN 20 MG TAB PO SCH (09:31)
[2022-06-11] MEDS: MONTELUKAST SODIUM 10 MG TAB PO SCH (09:31)
[2022-06-11 12:00] VITALS: BP 155/79
[2022-06-11 16:00] VITALS: BP 146/74
--- NOTE | 2022-06-11 16:03 | NUR ---
DC PLANNING: CALLED THE [facility] SPOKE WITH [facility] FAXED ALL THE PAPERWORK ARRANGED TRANSPORT WITH [facility] PICK UPTIME 4:30PM ARRANGED WAIT AND RETURN. PATIENT WILL BE BACK TO [facility] SOON SHE IS DONE WITH CT ANGIO CHEST. NOTIFIED NIGEL DUFFY CM TO FOLLOW
--- NOTE | 2022-06-11 16:15 | NUR ---
INSERTED NEW IV ACCESS ON RIGHT FOREARM GAUGE #[address] CHEST ANGIO PROCEDURE. TOLERATED WELL.
--- NOTE | 2022-06-11 16:55 | NUR ---
[facility] CAME FOR PT. TRANSPORTATION TO [facility]. BEDSIDE REPORT GIVEN TO TRANSPORT PERSONNEL.
--- NOTE | 2022-06-11 17:03 | NUR ---
WENT TO [facility] WITH [facility]SP[facility] FOR CT CHEST ANGIO PROCEDURE. AWAKE, ALERT, AND ORIENTED X4. NO C/O PAIN. NO SOB,NOTED. IN STABLE CONDITION. INFORMED CHARGE NURSE JASBIR WARE.
--- NOTE | 2022-06-11 18:20 | NUR ---
CAME BACK FROM [facility]IA [facility] WITH [facility] TRANSPORT. IN STABLE CONDITION. KEEP COMFORTABLE ON BED.
--- NOTE | 2022-06-11 19:02 | NUR ---
CALLED DR. PATEL AND INFORMED OF CRITICAL RESULTS OF CT ANGIO CHEST. IMPRESSION WAS READ VIA PHONE TO DR. PATEL. PULMONOLOGY CONSULT WITH DR. MARTINI RECEIVED, READ BACK AND VERIFIED. NO FURTHER ORDER RECEIVED.
--- NOTE | 2022-06-11 19:10 | NUR ---
CALLED DR. MARTINI AND INFORMED OF DR. PATEL PULMONOLOGY CONSULT ORDER REGARDING CRITICAL RESULTS OF CT ANGIO CHEST. IMPRESSION WAS READ VIA PHONE TO DR. MARTINI. ALSO INFORMED DR. MARTINI THAT PT. ALREADY ON LOVENOX 50 MG SUB-Q QHS.. ACCORDING TO DR. MARTINI, HE WILL SEE PT. IN THE MORNING.
--- NOTE | 2022-06-11 19:12 | NUR ---
REPORT GIVEN TO VITA WARE. IN STABLE CONDITION. ALSO ENDORSED ABOUT CRITICAL RESULTS OF CT ANGIO CHEST, INFORMING DR. PATEL AND DR. MARTINI, NO OTHER ORDER RECEIVED EXCEPT PULMONOLOGY CONSULT WITH DR. MARTINI.
--- NOTE | 2022-06-11 19:15 | NUR ---
RECEIVED PATIENT IN BED AWAKE, ALERT AND ORIENTED X 4. FAMILY MEMBER AT THE BEDSIDE. DENIES PAIN AT THIS TIME. DENIES SHORTNESS OF BREATH ON ROOM AIR SAT AT 97%. SKIN WARM AND DRY TO TOUCH. SAFETY PRECAUTIONS IN [place], CALL LIGHT IN REACH, ENCOURAGED TO CALL IF ASSISTANCE IS NEEDED, PT VERBALLY ACKNOWLEDGED.
[2022-06-11 20:00] VITALS: BP 127/68
[2022-06-11] MEDS: ECOTRIN 81 MG TABEC PO SCH (20:07)
[2022-06-11] MEDS: ENOXAPARIN 100 MG/ML SYR SUBQ SCH (20:09)
--- NOTE | 2022-06-11 20:10 | NUR ---
DUE MEDICATIONS GIVEN ORDERED. PT TOLERATED WELL.
--- NOTE | 2022-06-11 21:55 | NUR ---
PATIENT COMPLAINING OF THROAT PAIN, TYLENOL GIVEN ORDERED. PROVIDED WARM BLANKET. CALL LIGHT REMAINS WITHIN REACH.
[2022-06-12] VITALS: BP 138/71
--- NOTE | 2022-06-12 00:14 | NUR ---
PATIENT IS ASLEEP. BREATHING EVEN AND UNLABORED. CALL LIGHT IN REACH. CALL LIGHT WITHIN REACH.
--- NOTE | 2022-06-12 01:01 | NUR ---
HR DROPPED TO 37, CHECKED ON PT, PT WAS ASLEEP, EASILY AROUSABLE BY VERBAL STIMULI. DENIES PAIN. HR WENT TO 46.
[2022-06-12 04:00] VITALS: BP 113/58
[2022-06-12 05:29] LABS: BASOPHILS # (AUTO) 0.1 K/uL (0.00-0.22); BASOPHILS % (AUTO) 0.8 % (0.0-2.0); EOSINOPHILS # (AUTO) 0.3 K/uL (0-0.4); EOSINOPHILS % (AUTO) 3.6 % (0.0-4.0); HEMOGLOBIN 13.6 g/dL (12.0-16.0); LYMPHOCYTES # (AUTO) 2.8 K/uL (2.5-16.5); LYMPHOCYTES % (AUTO) 37.1 % (20.5-51.1); MEAN CORPUSCULAR HEMOGLOBIN 30 pg (27-31); MEAN CORPUSCULAR HGB CONC 33 g/dL (33-37); MONOCYTES # (AUTO) 0.8 K/uL (0.8-1.0); MONOCYTES % (AUTO) 10.3 % (1.7-9.3); NEUTROPHILS # (AUTO) 3.7 K/uL (1.8-7.7); NEUTROPHILS % (AUTO) 48.2 % (42.2-75.2); PLATELET COUNT (AUTO) 208 K/uL (140-450); RED CELL DISTRIBUTION WIDTH 15.3 % (11.6-13.7); WHITE BLOOD COUNT (AUTO) 7.7 K/uL (4.8-10.8)
[2022-06-12 06:02] LABS: ANION GAP 10.6 (8-16); CARBON DIOXIDE 26.5 mmol/L (21-32); CHLORIDE 108 mmol/L (98-107); CREATININE 0.9 mg/dL (0.6-1.3); GLUCOSE 86 mg/dL (74-106); POTASSIUM 4.1 mmol/L (3.5-5.1); SODIUM SERUM 141 mmol/L (136-145); UREA NITROGEN, BLOOD 26 mg/dL (7-18)
--- NOTE | 2022-06-12 06:23 | NUR ---
PATIENT IS ASLEEP. NO DISTRESS NOTED. ALL NEEDS ATTENDED TO. SAFETY PRECAUTIONS MAINTAINED DURING THE SHIFT, CALL LIGHT REMAINS WITHIN REACH.
--- NOTE | 2022-06-12 07:33 | NUR ---
GOT REPORT FROM THE NIGHT NURSE, PT SLEEPING, NO SOB IN ROOM AIR.[id number]
[2022-06-12 08:00] VITALS: BP 137/60
[2022-06-12] MEDS: ATORVASTATIN 20 MG TAB PO SCH (08:38)
[2022-06-12] MEDS: MONTELUKAST SODIUM 10 MG TAB PO SCH (08:38)
[2022-06-12] MEDS: lisinopriL 20 MG TAB PO SCH (08:39)
[2022-06-12] MEDS: DILTIAZEM 30 MG TAB PO SCH (08:39)
[2022-06-12] MEDS: ISOSORBIDE DINITRATE 10 MG TAB PO SCH (08:39)
--- NOTE | 2022-06-12 09:16 | NUR ---
PATIENT HAS BEEN SCREENED AND CATEGORIZED HIGH NUTRITION RISK. PATIENT WILL BE SEEN WITHIN 1-2 DAYS OF ADMISSION. REVIEWED BY YUMIKO DIAZ RD
[2022-06-12] MEDS ORDERED: APIX5TAB PO (09:29)
[2022-06-12 09:49] VITALS: BP 137/60
--- NOTE | 2022-06-12 11:06 | NUR ---
PT LEFT AMA, SAYS THAT HER DR MADE AN APPOINTMENT FOR HER HEART STRESS TEST. SHE DOES NOT WANT TO WAIT HERE FOR CARDIO CONSULT.[id number]
== END 2022-06-12 12:15 | disposition home health service (06) | DRG 299 ==
LOC: MED 17:44 → MTU 19:57
PROVIDERS: ADMIT Family Medicine; ATTEND Family Medicine
DX: I82.412 Acute embolism and thrombosis of left femoral vein (principal); I26.99 Other pulmonary embolism without acute cor pulmonale; N17.0 Acute kidney failure with tubular necrosis; E44.1 Mild protein-calorie malnutrition; R65.10 Systemic inflammatory response syndrome (SIRS) of non-infectious origin without acute organ dysfunction; I82.432 Acute embolism and thrombosis of left popliteal vein; I45.10 Unspecified right bundle-branch block; J45.909 Unspecified asthma, uncomplicated; Z20.822 Contact with and (suspected) exposure to COVID-19; E78.5 Hyperlipidemia, unspecified; I10 Essential (primary) hypertension; Z88.5 Allergy status to narcotic agent; Z79.899 Other long term (current) drug therapy; Z79.82 Long term (current) use of aspirin; Z83.3 Family history of diabetes mellitus; Z82.3 Family history of stroke; Z82.49 Family history of ischemic heart disease and other diseases of the circulatory system
CPT/HCPCS: 36415; 71045; 80048; 80053; 83735; 84484; 85025; 87081; 93005; 93971; 96372; 97116; 97163-GP; 99285; J1650; Q0092

== ENCOUNTER 2022-06-14 22:52 | Emergency (ER) | payer OTHER ==
[~2022-06-14] VITALS: Ht 162.6 cm; Wt 65.8 kg
[~2022-06-14 22:52] MED LIST changes: +APIX5TAB PO
[2022-06-14 22:55] VITALS: BP 142/76
--- NOTE | 2022-06-14 22:57 | NUR ---
patient to bed 12
--- NOTE | 2022-06-14 23:05 | NUR ---
test engineering technician by bedside
[2022-06-15] MEDS ORDERED: HYDROcodone/APAP 5/325 MG 1 TAB TAB PO ONE (00:05)
[2022-06-15] MEDS ORDERED: ACET-10509 PO (00:38)
--- NOTE | 2022-06-15 01:00 | NUR ---
Skye cueva in [facility] - 06/15/22 at 0111 by [email or web address] RIGHT KNEE RUBÉN WRAP X2.
--- NOTE | 2022-06-15 01:11 | NUR ---
LEFT KNEE RUBÉN WRAP X2.
[2022-06-15 01:30] VITALS: BP 114/76
--- NOTE | 2022-06-15 01:32 | NUR ---
Patient discharged with v/s stable. Written and verbal after care instructions given and explained. New orders for tylenol. Patient verbalized understanding. Ambulatory and using cane. Picked up by son. All questions addressed prior to discharge. Advised to follow up with PMD.
== END 2022-06-15 01:30 | disposition home or self-care (01) ==
LOC: MED 22:52
DX: S83.92XA Sprain of unspecified site of left knee, initial encounter (principal); I10 Essential (primary) hypertension; I48.91 Unspecified atrial fibrillation; Z88.5 Allergy status to narcotic agent; Z79.899 Other long term (current) drug therapy; W18.30XA Fall on same level, unspecified, initial encounter; Y93.89 Activity, other specified; Y92.89 Other specified places as the place of occurrence of the external cause; Y99.8 Other external cause status
CPT/HCPCS: 73562; 99283; Q0092